=== PATIENT | female | born 1965 | race African-American/Black ===

== ENCOUNTER 2022-03-26 20:45 | Emergency (ER) | payer MEDICAID, OTHER ==
[~2022-03-26] VITALS: Ht 162.6 cm; Wt 93.2 kg
[~2022-03-26 20:45] MED LIST: ALBUTEROL
[2022-03-26] MEDS ORDERED: IPRATROPIUM BROMIDE (0.02%) 0.5MG/2.5ML NEB HHN STA (21:28)
[2022-03-26] MEDS ORDERED: PREDNISONE 20MG TABLET PO STA (21:28)
[2022-03-26] MEDS ORDERED: ALBUTEROL (0.083%) 2.5MG/3ML NEB HHN STA (21:28)
[2022-03-26 22:33] LABS: BASOPHILS % 0.7 % (0.0-2.0); EOSINOPHILS % 5.6 % (0.0-5.0); HEMATOCRIT. 41.9 % (36.0-48.0); HEMOGLOBIN. 13.9 g/dL (12.0-16.0); LYMPHOCYTES % 28.4 % (20.0-50.0); MEAN CORPUSCULAR HEMOGLOBIN 29.2 pg (28.0-32.0); MEAN CORPUSCULAR VOLUME 88.1 fL (81.0-99.0); MEAN PLATELET VOLUME 8.2 fl (7.4-10.4); MONOCYTES % 7.5 % (2.0-8.0); NEUTROPHILS % 57.8 % (40.0-76.0); PLATELET 261 x1000/uL (130-400); RED BLOOD CELL COUNT 4.76 mill/uL (4.2-5.4)
[2022-03-26 22:42] LABS: CHLORIDE 108 mEq/L (98-107)
[2022-03-27 01:00] VITALS: BP 139/81
[2022-03-27] MEDS ORDERED: ALBU6.7H9 INH (01:39)
== END 2022-03-27 01:58 | disposition home or self-care (01) ==
LOC: ER 20:45
DX: J44.1 Chronic obstructive pulmonary disease with (acute) exacerbation (principal); Z76.0 Encounter for issue of repeat prescription; I10 Essential (primary) hypertension; F17.210 Nicotine dependence, cigarettes, uncomplicated; Z71.6 Tobacco abuse counseling; Z90.49 Acquired absence of other specified parts of digestive tract
CPT/HCPCS: 36415; 71045; 80053; 83880; 85025; 93005; 94640; 99285; J7512; Z7610

== ENCOUNTER 2023-05-30 20:01 | Emergency (ER) | payer MEDICAID ==
[~2023-05-30] VITALS: Ht 167.6 cm; Wt 75.0 kg
[~2023-05-30 20:01] MED LIST changes: +ALBU6.7H3 INH
[2023-05-30 20:44] LABS: EOSINOPHILS % 3.4 % (0.0-5.0); HEMATOCRIT. 42.3 % (36.0-48.0); HEMOGLOBIN. 14.2 g/dL (12.0-16.0); LYMPHOCYTES % 41.2 % (20.0-50.0); MEAN CORPUSCULAR HEMOGLOBIN 30.3 pg (28.0-32.0); MEAN CORPUSCULAR HGB CONC 33.6 g/dL (31.0-37.0); MEAN CORPUSCULAR VOLUME 90.4 fL (81.0-99.0); NEUTROPHILS % 47.4 % (40.0-76.0); PLATELET 259 x1000/uL (130-400); RED BLOOD CELL COUNT 4.68 mill/uL (4.2-5.4); RED CELL DISTRIBUTION WIDTH 14.6 % (11.6-14.6); WHITE BLOOD COUNT 8.6 x1000/uL (4.5-11.0)
[2023-05-30 20:50] LABS: CHLORIDE 106 mEq/L (98-107); INDEX HEMOLYSI 1 (1-3); INDEX ICTERIC 1 (1-4); INDEX LIPEMIC 1 (1-3); POTASSIUM 3.1 mEq/L (3.5-5.1); SODIUM 139 mEq/L (136-145)
[2023-05-30 21:00] LABS: ALANINE AMINOTRANSFERASE 21 IU/L (13-61); ALBUMIN 3.9 g/dL (3.4-5.0); ASPARTATE AMINOTRANSFERASE 24 IU/L (15-37); CARBON DIOXIDE 25 mEq/L (21-32); CREATININE 0.8 mg/dL (0.6-1.3); GLUCOSE 101 mg/dL (70-105); NT PRO B-TYPE NATRIURETIC PEP 23 pg/mL (5-125); PROTEIN TOTAL 7.9 g/dL (6.0-8.3); TROPONIN I HIGH SENSITIVITY 11 ng/L (<54); UREA NITROGEN BLOOD 14 mg/dL (7-21)
[2023-05-30] MEDS ORDERED: ALBUTEROL (0.083%) 2.5MG/3ML NEB HHN STA (21:07)
[2023-05-30] MEDS ORDERED: METHYLPREDNISOLONE SOD SUCC 125MG/2ML (ACT-O-VIAL) IV STA (21:07)
[2023-05-30 21:26] VITALS: PULSE 88; RESP 20; O2SAT 96
[2023-05-30 23:30] VITALS: BP 134/80; PULSE 92; RESP 16; TEMP 98.4
== END 2023-05-30 23:52 | disposition short-term general hospital (02) ==
LOC: ER 20:01 → CMPBEDREQ 05-31 21:50
DX: J44.1 Chronic obstructive pulmonary disease with (acute) exacerbation (principal); I10 Essential (primary) hypertension; Z90.49 Acquired absence of other specified parts of digestive tract; Z20.822 Contact with and (suspected) exposure to COVID-19
CPT/HCPCS: 80053; 83880; 85025; 84484; 36415; 71045; 94640; 93005; 96374; 99285; 87426; J2930; Z7610 ×6; C9803